=== PATIENT | male | born 2000 | race Two or more races ===

== ENCOUNTER 2020-06-15 15:47 | Emergency (ER) | payer OTHER ==
[~2020-06-15] VITALS: Ht 170.2 cm; Wt 80.3 kg
--- NOTE | 2020-06-15 16:08 | NUR ---
PA at bedside. pt placed in gown.
[2020-06-15] MEDS ORDERED: SODIUM CHLORIDE FLUSH 10ML SYR IVF ONE (16:30)
[2020-06-15 16:43] LABS: BASOPHILS % (AUTO) 1 % (0-1); EOSINOPHILS % (AUTO) 2 % (1-7); LYMPHOCYTES % (AUTO) 30 % (22-44); MEAN CORPUSCULAR HEMOGLOBIN 30.2 pg (27.5-34.5); MEAN CORPUSCULAR HGB CONC 34.2 g/dL (33.2-36.2); MEAN PLATELET VOLUME 7.5 fL (7.4-10.4); MONOCYTES % (AUTO) 10 % (2-9); NEUTROPHILS % (AUTO) 57 % (42-75); PLATELET COUNT 266 x10^3/uL (130-400); RED BLOOD COUNT 5.15 x10^6/uL (4.38-5.82); RED CELL DISTRIBUTION WIDTH 12.9 % (9.4-14.8)
[2020-06-15 16:48] LABS: ALANINE AMINOTRANSFERASE 25 U/L (12-78); CALCIUM 8.8 mg/dL (8.5-10.1); CREATININE 0.98 mg/dL (0.7-1.3)
[2020-06-15 16:49] LABS: MD NO
[2020-06-15 16:50] LABS: ALKALINE PHOSPHATASE 51 U/L (45-117); BILIRUBIN,TOTAL 0.3 mg/dL (0.2-1.0); TOTAL PROTEIN 7.2 g/dL (6.4-8.2)
[2020-06-15 17:06] LABS: ANION GAP 5 mmol/L (5-15); CHLORIDE 110 mmol/L (98-107)
--- NOTE | 2020-06-15 17:14 | NUR ---
pt to CT
--- NOTE | 2020-06-15 17:29 | NUR ---
returns from [place]
[2020-06-15] MEDS ORDERED: OMNIPAQUE 350 MG/ML, 100ML BOTTLE ONE (17:34)
[2020-06-15 18:33] VITALS: BP 121/73
== END 2020-06-15 18:45 | disposition home or self-care (01) ==
LOC: ED 16:30
DX: K62.5 Hemorrhage of anus and rectum (principal); R10.32 Left lower quadrant pain; F17.210 Nicotine dependence, cigarettes, uncomplicated
CPT/HCPCS: 36415; 74177; 80053; 85025; 99285; 99406; Q9967